=== PATIENT | female | born 2000 | race Hispanic/Latino ===

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

== ENCOUNTER 2020-10-03 16:42 | Emergency (ER) | payer OTHER ==
[2020-10-03] MEDS ORDERED: Ondansetron ODT 4 MG TAB ONE (17:14)
== END 2020-10-03 17:50 | disposition home or self-care (01) ==
LOC: ERS 16:42
DX: R11.2 Nausea with vomiting, unspecified (principal); R19.7 Diarrhea, unspecified
CPT/HCPCS: 99283; Q0162

== ENCOUNTER 2024-03-21 09:10 | Emergency (ER) | payer SELFPAY ==
[2024-03-21] MEDS ORDERED: Proparacaine 0.5% Opth 15 ML BOT ONE (09:21)
[2024-03-21] MEDS ORDERED: Fluorescein Opthalmic Strip ONE (09:21)
== END 2024-03-21 11:20 | disposition home or self-care (01) ==
LOC: ERS 09:10
DX: T54.91XA Toxic effect of unspecified corrosive substance, accidental (unintentional), initial encounter (principal); H10.213 Acute toxic conjunctivitis, bilateral
CPT/HCPCS: 99283